=== PATIENT | female | born 1985 | race Caucasian/White ===

== ENCOUNTER 2018-02-07 14:38 | Inpatient (IN) | payer BC ==
[2018-02-07] MEDS ORDERED: Ampicillin 2 GM in Sodium Chloride 0.9% 100 ML IV ONE (16:24)
[2018-02-07] MEDS ORDERED: Lactated Ringers 1,000 ML IV SCH (16:30)
[2018-02-07] MEDS ORDERED: Sodium Chloride 0.9% 10 ML Syringe FLUSH ONE (16:45)
[2018-02-07] MEDS: Lactated Ringers 1,000 ML IV SCH ×2 (16:45→21:05)
[2018-02-07] MEDS ORDERED: Sodium Chloride 0.9% 20 ML SDV FLUSH ONE (17:00)
--- NOTE | 2018-02-07 18:03 | PCM.LDHP ---
L&D History of Present Illness - General Date of Service: 02/07/18 Admit Problem/Dx: Patient Status Order with Admit Dx/Problem 02/07/18 14:41 Admission Status [Patient Status] [ADT] Routine 02/07/18 16:23 Admission Status [Patient Status] [ADT] Routine Admission Diagnosis/Problem Admission Diagnosis/Problem Labor without complication Source of Information: Patient, Old Records History Limitations: Reports: No Limitations - History of Present Illness Introduction:: 32 yo female who presented to the clinic with Possible rapute of membranes, along with regular uterine contractions. She was found to have dilated to 2 cm, and up admission the OB unit had progressed to 100% effaced. The Amniosure was negative. her has had a normal course with the exception Group B status being positive - Related Data Allergies/Adverse Reactions: Allergies Allergy/AdvReac Type Severity Reaction Status Date / Time No Known Allergies Allergy Verified 02/07/18 15:17 Home Medications: Home Meds Vits #93/Iron Fum/FA [ Formula Tablet] 1 tab PO DAILY 02/07/18 [History] Past Medical History [employer] SAL[employer] History: Reports: Musculoskeletal History: Reports: Fracture - Past Surgical History HEENT Surgical History: Reports: Oral Surgery Social & Family History - Family History Family Medical History: Unobtainable - Tobacco Use Smoking Status *Q: Never Smoker Second Hand Smoke Exposure: No - Caffeine Use Caffeine Use: Reports: None - Recreational Drug Use Recreational Drug Use: No H&P Review of Systems - Review of Systems: Review Of Systems: ROS reveals no pertinent complaints other than HPI. L&D Exam - Exam Exam: See Below - Vital Signs Vital Signs: Last Vital Signs Temp 98.1 F 02/07/18 14:55 Pulse 83 02/07/18 16:30 Resp 20 02/07/18 14:55 BP 129/81 02/07/18 14:55 Pulse Ox 97 02/07/18 15:31 Weight: 107.955 kg - OB Specific Contraction Duration (sec): 30-100 Contraction Frequency (min): 3-5 Contraction Intensity: Moderate to Strong - Park Score Park Score Cervix Position: Anterior Park Score Consistency: Soft Park Score Dilation: 3-4 cm Park Score Infant's Station: -1 ,0 - Exam General: Alert, Oriented HEENT: PERRLA, Conjunctiva Clear, EACs Clear, EOMI, Hearing Intact, Mucosa Moist & [place], Nares Patent, Normal Nasal Septum, Posterior Pharynx Clear, TMs Clear Neck: Supple, Trachea Midline Lungs: Clear to Auscultation, Normal Respiratory Effort Cardiovascular: Regular Rate, Regular Rhythm GI/Abdominal Exam: Normal Bowel Sounds, Soft, Non-Tender, No Organomegaly, No Distention, No Abnormal Bruit, No Mass, Pelvis Stable Rectal Exam: Normal Exam, Normal Rectal Tone Genitourinary: Normal external exam, Normal bimanual exam, Normal speculum exam Back Exam: Normal Inspection, Full Range of Motion Extremities: Normal Inspection, Normal Range of Motion, Non-Tender, No Pedal Edema, Normal Capillary Refill Skin: Warm, Dry, Intact Neurological: Cranial Nerves Intact, Reflexes Equal Bilateral Psychiatric: Alert, Normal Affect, Normal Mood - Patient Data Lab Results Last 24 hrs: Laboratory Results - last 24 hr 02/07/18 Range/Units 15:10 Membrane Rupture Negative (NEGATIVE) - Problem List (1) Normal labor SNOMED Code(s): 18657070 ICD Code: O80 - ENCOUNTER FOR FULL-TERM UNCOMPLICATED DELIVERY; Z37.9 - OUTCOME OF DELIVERY, UNSPECIFIED Status: Acute Current Visit: Yes (2) Group B streptococcal carriage complicating SNOMED Code(s): 924856605139432 ICD Code: O99.820 - STREPTOCOCCUS B CARRIER STATE COMPLICATING Status: Acute Current Visit: Yes (3) Obesity affecting SNOMED Code(s): 769882574365 ICD Code: O99.210 - OBESITY COMPLICATING , UNSPECIFIED TRIMESTER Status: Acute Current Visit: Yes Qualifiers: Trimester: third trimester Qualified Code(s): O99.213 - Obesity complicating , third trimester Problem List Initiated/Reviewed/Updated: Yes Orders Last 24hrs: Active Orders 24 hr Category Date Time Status Admission Status [Patient Status] [ADT] Routine ADT 02/07/18 14:41 Active Admission Status [Patient Status] [ADT] Routine ADT 02/07/18 16:23 Active Ampicillin 1 gm Med 02/07/18 20:30 Active Sodium Chloride 0.9% [Normal Saline] 50 ml IV Q4H Lactated Ringers [Ringers, Lactated] 1,000 ml Med 02/07/18 16:30 Active IV ASDIRECTED Peripheral IV Insertion Adult [OM.PC] Routine Oth 02/07/18 16:26 Ordered Medication Orders Ampicillin Sodium 1 gm/ Sodium (Chloride) 50 mls @ 100 mls/hr IV Q4H [facility] Lactated Ringer's (Ringers, Lactated) 1,000 mls @ 125 mls/hr IV ASDIRECTED [facility] Last Admin: 02/07/18 16:45 Dose: 125 mls/hr Assessment/Plan Comment:: I did AROM,clear fluid. Proceed with Ampicillin chemoprophylaxis,and augment with Pitocin and necessary
[2018-02-07] MEDS: Ampicillin 1 GM in Sodium Chloride 0.9% 50 ML IV SCH (21:00)
[2018-02-07] MEDS ORDERED: Naloxone 0.4 MG/ML SDV ONE (21:27)
[2018-02-07] MEDS ORDERED: ePHEDrine 50 MG/ML SDV ONE (21:28)
[2018-02-07] MEDS ORDERED: hydrOXYzine HCl 50 MG/ML SDV IM PRN ×2 (21:44)
[2018-02-07] MEDS ORDERED: diphenhydrAMINE 50 MG/ML SDV IVPUSH PRN (21:44)
[2018-02-07] MEDS ORDERED: Naloxone 0.4 MG/ML SDV IVPUSH PRN (21:44)
[2018-02-07] MEDS ORDERED: ePHEDrine 50 MG/ML SDV IVPUSH PRN (21:44)
[2018-02-07] MEDS ORDERED: Promethazine 25 MG/ML SDV IV PRN (21:44)
[2018-02-07] MEDS ORDERED: Naloxone 0.4 MG in Sodium Chloride 0.9% 100 ML IV PRN (21:44)
[2018-02-07] MEDS ORDERED: Ondansetron 4 MG/2 ML SDV IVPUSH PRN (21:47)
[2018-02-08] MEDS: Ampicillin 1 GM in Sodium Chloride 0.9% 50 ML IV SCH ×3 (00:52→09:34)
[2018-02-08] MEDS: Lactated Ringers 1,000 ML IV SCH ×4 (05:33→20:30)
[2018-02-08] MEDS ORDERED: Scopolamine 1.5 MG Transdermal Patch ONE (08:26)
[2018-02-08] MEDS ORDERED: Scopolamine 1.5 MG Transdermal Patch TRDERM ONE (08:30)
[2018-02-08] MEDS ORDERED: Citric Acid/Sodium Citrate Solution 30 ML Cup PO ONE (08:30)
[2018-02-08] MEDS ORDERED: Naloxone 0.4 MG/ML SDV IVPUSH PRN (09:50)
[2018-02-08] MEDS ORDERED: diphenhydrAMINE 50 MG/ML SDV IVPUSH PRN (09:50)
[2018-02-08] MEDS ORDERED: ePHEDrine 50 MG/ML SDV IVPUSH PRN (09:50)
--- NOTE | 2018-02-08 11:16 | OR ---
DATE OF OPERATION: 02/08/2018 SURGEON: Dilip Rosales MD PREOPERATIVE DIAGNOSIS: Failure to descend. POSTOPERATIVE DIAGNOSIS: Cephalopelvic disproportion. PRODUCT OF DELIVERY: Male live with score of 9 and 9. PERMIT: The patient accepted the risks and benefits, which were explained to her at bedside. ANESTHESIA: Regional. PRIMARY SURGEON: DR Rosales PLUMBING AND HEATING MECHANIC: Adair Mane MD. DESCRIPTION OF PROCEDURE: The patient was taken to the OR. After adequate anesthesia, she was prepped and draped in the usual sterile fashion. Lying in the dorsal left tilt position. A Pfannenstiel incision was made in the lower abdomen, carried down to the underlying fascia, ligating the vessels encountered. The rectus fascia was scored in the middle and carried laterally with Andrews scissors. The upper and lower portions were bluntly and sharply dissected from the rectus muscles after elevating with Roseline clamps. The muscles were in the middle and the peritoneum was entered sharply ascertaining the internal structures were safe. A bladder blade was inserted and visceral peritoneum was made with the bladder reflection. Small incision with a scalpel was made in the uterus and digitally extended. The baby was delivered atraumatically through the incision, noted to have caput. The cord was cut and clamped, and the baby was handed to the awaiting nurses. Attention was turned to the mother, where cord blood was obtained and the placenta was manually extracted. The uterus was cleaned of all clots and massaged vigorously after it was exteriorized. The uterus incision was closed in 2 layers using 0 Vicryl. One [id number] in the left corner of the incision was needed to achieve the hemostasis. Visceral peritoneum was closed with a 3-0 running stitch and the uterus was returned to the maternal abdomen. The gutters were cleaned of all clots and irrigated. The fascia, rectus fascia were closed with a 0 Vicryl, and thereafter the Yesica's fascia and the skin was closed subcutaneously with a 3-0 running stitch. The instrument, lap, and sponge counts were correct x3. The patient tolerated the procedure well and will continue to be followed in the OR in post anesthesia unit. Estimated blood loss about 500 mL. The patient received ampicillin for 24 hours before the surgery. /[id number] TN/MODL MTDD
[2018-02-08] MEDS ORDERED: Acetaminophen/HYDROcodone 325-5 MG Tab PO PRN (11:41)
[2018-02-08] MEDS ORDERED: Ketorolac 30 MG/ML SDV ONE (16:01)
[2018-02-08] MEDS: Ketorolac 30 MG/ML SDV IVPUSH PRN (16:09)
[2018-02-09] MEDS: Lactated Ringers 1,000 ML IV SCH ×2 (00:46→04:57)
[2018-02-09] MEDS ORDERED: Ketorolac 30 MG/ML SDV ONE (05:18)
[2018-02-09] MEDS: Ketorolac 30 MG/ML SDV IVPUSH PRN (05:40)
[2018-02-09] MEDS: Ibuprofen 600 MG Tab PO SCH ×3 (09:54→20:42)
--- NOTE | 2018-02-09 17:52 | PCM.PNPP ---
- General Info Date of Service: 02/09/18 Admission Dx/Problem (Free Text): C section yesterday Functional Status: Reports: Pain Controlled, Tolerating Diet, Ambulating - Review of Systems General: Reports: No Symptoms HEENT: Reports: No Symptoms Pulmonary: Reports: No Symptoms Cardiovascular: Reports: No Symptoms Gastrointestinal: Reports: No Symptoms Genitourinary: Reports: No Symptoms Musculoskeletal: Reports: No Symptoms Skin: Reports: No Symptoms Neurological: Reports: No Symptoms Psychiatric: Reports: No Symptoms - General Info Date of Service: 02/09/18 - Patient Data Vital Signs - Most Recent: Last Vital Signs Temp 98.1 F 02/09/18 16:30 Pulse 89 02/09/18 16:30 Resp 20 02/09/18 16:30 BP 145/69 H 02/09/18 16:30 Pulse Ox 99 02/09/18 16:30 Weight - Most Recent: 107.955 kg I&O - Last 24 Hours: Intake & Output 02/09/18 02/09/18 02/09/18 06:59 14:59 22:59 Intake Total 2004 1434 Output Total 1000 800 400 Balance 1005 634 -400 Lab Results - Last 24 Hours: Laboratory Results - last 24 hr 02/09/18 Range/Units 06:45 WBC 15.4 H (4.5-12.0) X10-3/uL RBC 3.34 (3.23-5.20) x10(6)uL Hgb 10.6 L (11.5-15.5) g/dL Hct 31.9 (30.0-51.3) % MCV 95.4 (80-96) fL MCH 31.8 (27.7-33.6) pg MCHC 33.4 (32.2-35.4) g/dL RDW 14.3 (11.5-15.5) % Plt Count 182 (125-369) X10(3)uL Med Orders - Current: Current Medications Hydrocodone Bitart/Acetaminophen ([place]er 325-5 Mg) 1 tab PO Q4H PRN PRN Reason: Pain Diphenhydramine HCl (Benadryl) 25 mg IVPUSH Q6H PRN PRN Reason: Itching or Nausea Ephedrine Sulfate (Ephedrine Sulfate) 5 mg IVPUSH ASDIRECTED PRN PRN Reason: Other Hydroxyzine HCl (Vistaril) 50 mg IM Q6H PRN PRN Reason: PRURITIS Hydroxyzine HCl (Vistaril) 0 mg IM Q4H PRN PRN Reason: N/V Naloxone HCl 0.4 mg/ Sodium (Chloride) 101 mls @ 25 mls/hr IV ASDIRECTED PRN PRN Reason: PER ORDER OF ANESTHESIA Ibuprofen (Motrin) 600 mg PO Q6H [facility] Last Admin: 02/09/18 14:38 Dose: Not Given Naloxone HCl (Narcan) 0.1 mg IVPUSH ONETIME PRN PRN Reason: Respiratory Depression Ondansetron HCl (Zofran) 4 mg IVPUSH Q6H PRN PRN Reason: Nausea/Vomiting Promethazine HCl (Phenergan) 6.25 - 12.5 mg IV Q4H PRN PRN Reason: NAUSEA AND VOMITING Discontinued Medications Citric Acid/Sodium Citrate (Bicitra Solution) 30 ml PO ONETIME ONE Stop: 02/08/18 08:31 Last Admin: 02/08/18 08:30 Dose: 30 ml Diphenhydramine HCl (Benadryl) 25 mg IVPUSH ASDIRECTED PRN PRN Reason: PRURITUS Ephedrine Sulfate (Ephedrine Sulfate) Confirm Administered Dose 50 mg .ROUTE .ST-MED ONE Stop: 02/07/18 21:29 Last Admin: 02/07/18 22:10 Dose: Not Given Ephedrine Sulfate (Ephedrine Sulfate) 5 mg IVPUSH ASDIRECTED PRN PRN Reason: HYPOTENSION Ampicillin Sodium 2 gm/ Sodium (Chloride) 100 mls @ 200 mls/hr IV ONETIME ONE Stop: 02/07/18 16:53 Last Admin: 02/07/18 17:19 Dose: 200 mls/hr Lactated Ringer's (Ringers, Lactated) 1,000 mls @ 125 mls/hr IV ASDIRECTED [facility] Ampicillin Sodium 1 gm/ Sodium (Chloride) 50 mls @ 100 mls/hr IV Q4H [facility] Last Admin: 02/08/18 09:34 Dose: Not Given Lactated Ringer's (Ringers, Lactated) 1,000 mls @ 125 mls/hr IV ASDIRECTED [facility] Stop: 02/08/18 10:00 Last Admin: 02/08/18 05:33 Dose: 125 mls/hr Oxytocin/Sodium Chloride (Pitocin In Ns 20 Units/1,000 Ml) 20 unit in 1,000 mls @ 6 mls/hr IV TITRATE [facility]; Protocol Stop: 02/08/18 08:00 Last Titration: 02/08/18 00:03 Dose: 4 munits/min, 12 mls/hr Lactated Ringer's (Ringers, Lactated) 1,000 mls @ 250 mls/hr IV ASDIRECTED [facility] Last Admin: 02/09/18 04:57 Dose: 250 mls/hr Ketorolac Tromethamine (Toradol) 30 mg IVPUSH Q6H PRN PRN Reason: Pain Stop: 02/13/18 11:42 Last Admin: 02/09/18 05:40 Dose: 30 mg Naloxone HCl (Narcan) Confirm Administered Dose 0.4 mg .ROUTE .STK-MED ONE Stop: 02/07/18 21:28 Last Admin: 02/07/18 22:11 Dose: Not Given Naloxone HCl (Narcan) 0.1 mg IVPUSH ASDIRECTED PRN PRN Reason: RESPIRATORY STATUS Scopolamine (Transderm-Scop) 1.5 mg TRDERM Q72H ONE Stop: 02/08/18 08:31 Last Admin: 02/08/18 08:30 Dose: 1.5 mg Sodium Chloride (Normal Saline) 10 ml FLUSH ONETIME ONE Stop: 02/07/18 17:01 Sodium Chloride (Saline Flush) 10 ml FLUSH ONETIME ONE Stop: 02/07/18 16:46 Last Admin: 02/07/18 17:16 Dose: 10 ml - Interaction Infant Disposition, : [employer] at Bedside Infant Feeding: Attempted ; Nursed Fair/Poor Support Person: - Recovery Exam Fundal Tone: Firm Fundal Level: 2 Fingerbreadths Below Umbilicus Fundal Placement: Midline Lochia Amount: Small Lochia Color: Rubra/Red Perineum Description: Intact, Minimal Bruising/Swelling Episiotomy/Laceration: None Bladder Status: Voiding Urinary Elimination: Indwelling Catheter - Exam General: Alert, Oriented HEENT: Pupils Equal Neck: Supple Lungs: Clear to Auscultation, Normal Respiratory Effort Cardiovascular: Regular Rate, Regular Rhythm GI/Abdominal Exam: Normal Bowel Sounds, Soft, Non-Tender, No Organomegaly, No Distention, No Abnormal Bruit, No Mass, Pelvis Stable Extremities: Normal Inspection, Normal Range of Motion, Non-Tender, No Pedal Edema, Normal Capillary Refill Skin: Warm, Dry, Intact Wound/Incisions: Healing Well Neurological: No New Focal Deficit Psy/Mental Status: Alert, Normal Affect, Normal Mood - Problem List & Annotations (1) Normal labor SNOMED Code(s): 92379224 Code(s): O80 - ENCOUNTER FOR FULL-TERM UNCOMPLICATED DELIVERY; Z37.9 - OUTCOME OF DELIVERY, UNSPECIFIED Status: Acute Current Visit: Yes (2) Group B streptococcal carriage complicating SNOMED Code(s): 678765046792061 Code(s): O99.820 - STREPTOCOCCUS B CARRIER STATE COMPLICATING Status: Acute Current Visit: Yes (3) Obesity affecting SNOMED Code(s): 137492912900 Code(s): O99.210 - OBESITY COMPLICATING , UNSPECIFIED TRIMESTER Status: Acute Current Visit: Yes Qualifiers: Trimester: third trimester Qualified Code(s): O99.213 - Obesity complicating , third trimester (4) S/P SNOMED Code(s): 970063336, 686863929 Code(s): Z98.891 - HISTORY OF UTERINE SCAR FROM PREVIOUS SURGERY Status: Acute Current Visit: Yes (5) care and examination SNOMED Code(s): 642328229, 050134963, 987874653 Code(s): Z39.2 - ENCOUNTER FOR ROUTINE FOLLOW-UP Status: Acute Current Visit: Yes - Problem List Review Problem List Initiated/Reviewed/Updated: Yes - My Orders Last 24 Hours: My Active Orders 02/09/18 08:30 Estrada Catheter Insertion [Insert Urinary Catheter] [OM.PC] Q24H 02/09/18 08:33 Peripheral IV Discontinue [OM.PC] Routine 02/09/18 08:45 Ibuprofen [Motrin] 600 mg PO Q6H 02/09/18 Breakfast Regular Diet [DIET] - Plan Plan:: Routine care. DC IVF,Foly.Pain Control.
[2018-02-09] MEDS ORDERED: Acetaminophen/HYDROcodone 325-10 MG Tab ONE (18:04)
[2018-02-09] MEDS ORDERED: Acetaminophen/HYDROcodone 325-5 MG Tab ONE (21:21)
[2018-02-09] MEDS: Acetaminophen/HYDROcodone 325-5 MG Tab PO PRN (21:30)
[2018-02-10] MEDS ORDERED: Acetaminophen/HYDROcodone 325-5 MG Tab ONE (01:33)
[2018-02-10] MEDS: Acetaminophen/HYDROcodone 325-5 MG Tab PO PRN (01:40)
[2018-02-10] MEDS ORDERED: Ibuprofen 600 MG Tab ONE (02:49)
[2018-02-10] MEDS: Ibuprofen 600 MG Tab PO SCH ×2 (02:52→09:07)
--- NOTE | 2018-02-10 10:44 | OR ---
DATE OF OPERATION: 02/08/2018 SURGEON: Dilip Rosales MD PROCEDURE: Vacuum-assisted delivery. PREOPERATIVE DIAGNOSIS: Failure to progress in second stage. POSTOPERATIVE DIAGNOSIS: Failure to descend and failed operative vaginal delivery. INDICATION: I reviewed the risks and benefits of the procedure to the parents, the mother, and the significant other. Estimated baby weight is about 8 pounds. She had been pushing for 2 hours with minimal progress. Position of the baby was estimated to be 1 to 2+, with PADMINI position. PROCEDURE DESCRIPTION: The bladder was emptied. Informed consent obtained. Risks and benefits were reviewed. I called for additional assistance, respiratory therapy and anesthesia. I performed a vaginal exam and determined the position and the J-point mushroom type cup was placed during the next contraction. Inflation to the green was done during contraction, and after three contractions and three pulls, one popoff, there was minimal progress made. The procedure was then abandoned in favor of an urgent to accomplish delivery. COMPLICATIONS: Minimal soft tissue injury to the maternal vaginal area and caput. FOLLOWUP: We will continue to follow the patient after the . Type and cross on screening has been ordered and please see the operative note for the C- section. /[id number] SADIA/OFELIA
--- NOTE | 2018-02-10 11:48 | PCM.PNPP ---
- General Info Date of Service: 02/10/18 Subjective Update: Doing well. Functional Status: Reports: Pain Controlled - Review of Systems General: Reports: No Symptoms HEENT: Reports: No Symptoms Pulmonary: Reports: No Symptoms Cardiovascular: Reports: No Symptoms - General Info Date of Service: 02/10/18 - Patient Data Vital Signs - Most Recent: Last Vital Signs Temp 97.7 F 02/10/18 10:15 Pulse 80 02/10/18 10:15 Resp 16 02/10/18 10:15 BP 140/63 02/10/18 10:15 Pulse Ox 99 02/10/18 10:15 Weight - Most Recent: 107.955 kg I&O - Last 24 Hours: Intake & Output 02/09/18 02/10/18 02/10/18 22:59 06:59 14:59 Intake Total 600 Output Total 400 Balance 200 Med Orders - Current: Current Medications Hydrocodone Bitart/Acetaminophen ([place] 325-5 Mg) 1 tab PO Q4H PRN PRN Reason: Pain Last Admin: 02/09/18 18:15 Dose: 1 tab Hydrocodone Bitart/Acetaminophen ([place] 325-5 Mg) 2 tab PO Q4H PRN PRN Reason: Pain Last Admin: 02/10/18 01:40 Dose: 2 tab Diphenhydramine HCl (Benadryl) 25 mg IVPUSH Q6H PRN PRN Reason: Itching or Nausea Ephedrine Sulfate (Ephedrine Sulfate) 5 mg IVPUSH ASDIRECTED PRN PRN Reason: Other Hydroxyzine HCl (Vistaril) 50 mg IM Q6H PRN PRN Reason: PRURITIS Hydroxyzine HCl (Vistaril) 0 mg IM Q4H PRN PRN Reason: N/V Naloxone HCl 0.4 mg/ Sodium (Chloride) 101 mls @ 25 mls/hr IV ASDIRECTED PRN PRN Reason: PER ORDER OF ANESTHESIA Ibuprofen (Motrin) 600 mg PO Q6H [facility] Last Admin: 02/10/18 09:07 Dose: 600 mg Naloxone HCl (Narcan) 0.1 mg IVPUSH ONETIME PRN PRN Reason: Respiratory Depression Ondansetron HCl (Zofran) 4 mg IVPUSH Q6H PRN PRN Reason: Nausea/Vomiting Promethazine HCl (Phenergan) 6.25 - 12.5 mg IV Q4H PRN PRN Reason: NAUSEA AND VOMITING Discontinued Medications Hydrocodone Bitart/Acetaminophen ([place] 325-10 Mg) Confirm Administered Dose 1 tab .ROUTE .STK-MED ONE Stop: 02/09/18 18:05 Last Admin: 02/10/18 09:11 Dose: Not Given Hydrocodone Bitart/Acetaminophen ([place] 325-5 Mg) Confirm Administered Dose 2 tab .ROUTE .STK-MED ONE Stop: 02/09/18 21:22 Last Admin: 02/10/18 09:11 Dose: Not Given Hydrocodone Bitart/Acetaminophen ([place] 325-5 Mg) Confirm Administered Dose 2 tab .ROUTE .STK-MED ONE Stop: 02/10/18 01:34 Last Admin: 02/10/18 09:11 Dose: Not Given Citric Acid/Sodium Citrate (Bicitra Solution) 30 ml PO ONETIME ONE Stop: 02/08/18 08:31 Last Admin: 02/08/18 08:30 Dose: 30 ml Diphenhydramine HCl (Benadryl) 25 mg IVPUSH ASDIRECTED PRN PRN Reason: PRURITUS Ephedrine Sulfate (Ephedrine Sulfate) Confirm Administered Dose 50 mg .ROUTE .STK-MED ONE Stop: 02/07/18 21:29 Last Admin: 02/07/18 22:10 Dose: Not Given Ephedrine Sulfate (Ephedrine Sulfate) 5 mg IVPUSH ASDIRECTED PRN PRN Reason: HYPOTENSION Ampicillin Sodium 2 gm/ Sodium (Chloride) 100 mls @ 200 mls/hr IV ONETIME ONE Stop: 02/07/18 16:53 Last Admin: 02/07/18 17:19 Dose: 200 mls/hr Lactated Ringer's (Ringers, Lactated) 1,000 mls @ 125 mls/hr IV ASDIRECTED [facility] Ampicillin Sodium 1 gm/ Sodium (Chloride) 50 mls @ 100 mls/hr IV Q4H [facility] Last Admin: 02/08/18 09:34 Dose: Not Given Lactated Ringer's (Ringers, Lactated) 1,000 mls @ 125 mls/hr IV ASDIRECTED [facility] Stop: 02/08/18 10:00 Last Admin: 02/08/18 05:33 Dose: 125 mls/hr Oxytocin/Sodium Chloride (Pitocin In Ns 20 Units/1,000 Ml) 20 unit in 1,000 mls @ 6 mls/hr IV TITRATE [facility]; Protocol Stop: 02/08/18 08:00 Last Titration: 02/08/18 00:03 Dose: 4 munits/min, 12 mls/hr Lactated Ringer's (Ringers, Lactated) 1,000 mls @ 250 mls/hr IV ASDIRECTED [facility] Last Admin: 02/09/18 04:57 Dose: 250 mls/hr Ibuprofen (Motrin) Confirm Administered Dose 600 mg .ROUTE .STK-MED ONE Stop: 02/10/18 02:50 Last Admin: 02/10/18 09:11 Dose: Not Given Ketorolac Tromethamine (Toradol) 30 mg IVPUSH Q6H PRN PRN Reason: Pain Stop: 02/13/18 11:42 Last Admin: 02/09/18 05:40 Dose: 30 mg Ketorolac Tromethamine (Toradol) Confirm Administered Dose 30 mg .ROUTE .STK- MED ONE Stop: 02/08/18 16:02 Ketorolac Tromethamine (Toradol) Confirm Administered Dose 30 mg .ROUTE .STK- MED ONE Stop: 02/09/18 05:19 Last Admin: 02/10/18 09:10 Dose: Not Given Naloxone HCl (Narcan) Confirm Administered Dose 0.4 mg .ROUTE .STK-MED ONE Stop: 02/07/18 21:28 Last Admin: 02/07/18 22:11 Dose: Not Given Naloxone HCl (Narcan) 0.1 mg IVPUSH ASDIRECTED PRN PRN Reason: RESPIRATORY STATUS Scopolamine (Transderm-Scop) 1.5 mg TRDERM Q72H ONE Stop: 02/08/18 08:31 Last Admin: 02/08/18 08:30 Dose: 1.5 mg Scopolamine (Transderm-Scop) Confirm Administered Dose 1.5 mg .ROUTE .STK-MED ONE Stop: 02/08/18 08:27 Sodium Chloride (Normal Saline) 10 ml FLUSH ONETIME ONE Stop: 02/07/18 17:01 Sodium Chloride (Saline Flush) 10 ml FLUSH ONETIME ONE Stop: 02/07/18 16:46 Last Admin: 02/07/18 17:16 Dose: 10 ml - Infant Interaction Infant Disposition, : [place] at Bedside Infant Feeding: Attempted ; Nursed Fair/Poor Support Person: - Recovery Exam Fundal Tone: Firm Fundal Level: 1 Fingerbreadths Below Umbilicus Fundal Placement: Midline Lochia Amount: Small Lochia Color: Rubra/Red Perineum Description: Intact, Minimal Bruising/Swelling Episiotomy/Laceration: None Bladder Status: Voiding Urinary Elimination: Indwelling Catheter - Exam Quality Assessment: No: Supplemental Oxygen General: Alert, Oriented Psy/Mental Status: Alert - Problem List & Annotations (1) Normal labor SNOMED Code(s): 27045341 Code(s): O80 - ENCOUNTER FOR FULL-TERM UNCOMPLICATED DELIVERY; Z37.9 - OUTCOME OF DELIVERY, UNSPECIFIED Status: Acute Current Visit: Yes (2) Group B streptococcal carriage complicating SNOMED Code(s): 467888732289774 Code(s): O99.820 - STREPTOCOCCUS B CARRIER STATE COMPLICATING Status: Acute Current Visit: Yes (3) Obesity affecting SNOMED Code(s): 970052248022 Code(s): O99.210 - OBESITY COMPLICATING , UNSPECIFIED TRIMESTER Status: Acute Current Visit: Yes Qualifiers: Trimester: third trimester Qualified Code(s): O99.213 - Obesity complicating , third trimester (4) S/P SNOMED Code(s): 501571040, 859452127 Code(s): Z98.891 - HISTORY OF UTERINE SCAR FROM PREVIOUS SURGERY Status: Acute Current Visit: Yes (5) care and examination SNOMED Code(s): 323405271, 387129566, 082616740 Code(s): Z39.2 - ENCOUNTER FOR ROUTINE FOLLOW-UP Status: Acute Current Visit: Yes - Problem List Review Problem List Initiated/Reviewed/Updated: Yes - My Orders Last 24 Hours: My Active Orders 02/09/18 20:51 Acetaminophen/HYDROcodone [Westwood 325-5 MG] 2 tab PO Q4H PRN - Plan Plan:: Doing well. PP#2.May DC home
--- NOTE | 2018-02-10 12:27 | DISCH ---
DISCHARGE DATE: 02/10/2018 REASON FOR ADMISSION: 1. Uterine contractions with first stage of labor. 2. Obesity. 3. Group B strep affecting . DISCHARGE DIAGNOSES: 1. Failed operative vaginal delivery. 2. Primary due to CPD or cephalopelvic disproportion. 3. Obesity. 4. Group B strep. CONSULTATIONS: None. OPERATIONS: The patient had a after a failed vacuum delivery. Please see operative note. HOSPITAL COURSE: She did well postoperatively. Pain was controlled with hydrocodone and she is . Normal hemoglobin and vital signs and tolerating diet. Discharged home on the with hydrocodone one tablet every 6 hours p.r.n. and vitamins with iron tablets. Please note that I spent more than 35 minutes in discharge. FOLLOW UP: Is arranged in six weeks. /[id number] SADIA/OFELIA
== END 2018-02-10 12:40 | disposition home or self-care (01) | DRG 540 ==
LOC: FB.OBCHECK 14:38 → FB.OB 14:38 → FB.OBCHECK 16:23
PROVIDERS: ADMIT Family Medicine; ATTEND Family Medicine
PROC: 10D00Z1 Extraction of Products of Conception, Low, Open Approach (ICD-10-PCS; principal; 2018-02-08)
PROC: 10907ZC Drainage of Amniotic Fluid, Therapeutic from Products of Conception, Via Natural or Artificial Opening (ICD-10-PCS; 2018-02-08)
PROC: 6A550ZT Pheresis of Cord Blood Stem Cells, Single (ICD-10-PCS; 2018-02-08)
DX: O33.9 Maternal care for disproportion, unspecified (principal); O99.214 Obesity complicating childbirth; O32.4XX0 Maternal care for high head at term, not applicable or unspecified; O99.824 Streptococcus B carrier state complicating childbirth; O66.5 Attempted application of vacuum extractor and forceps; Z3A.00 Weeks of gestation of pregnancy not specified; Z37.0 Single live birth
CPT/HCPCS: 36415; 51701; 51702; 59409; 84112; 85025; 85027; 86850; 86900; 86901; 94150; 99211; A9270-GY; J0290; J1885; J2590; J7030; J7050; J7120